=== PATIENT | female | born 1960 | race Caucasian/White ===

== ENCOUNTER 2021-10-04 08:44 | Outpatient (CLI) | payer OTHER | END 2021-10-04 08:45 | disposition home or self-care (01) | LOC: ULT 08:44 | PROVIDERS: ATTEND Physician Assistant Medical | DX: Z12.11 Encounter for screening for malignant neoplasm of colon (principal); K74.60 Unspecified cirrhosis of liver; B19.20 Unspecified viral hepatitis C without hepatic coma; I85.00 Esophageal varices without bleeding; K76.89 Other specified diseases of liver; R18.8 Other ascites; Z87.19 Personal history of other diseases of the digestive system; Z90.49 Acquired absence of other specified parts of digestive tract | CPT/HCPCS: 76705 ==

== ENCOUNTER 2022-01-07 15:27 | Inpatient (IN) | payer OTHER, MEDICAID ==
[2022-01-07 16:20] LABS: Hemoglobin 12.3 g/dL (12.0-16.0); Mean Corpuscular Hemoglobin 34.4 pg (27.0-31.0); Mean Platelet Volume 9.7 fL (7.4-10.4); Platelet Count 110 thou/uL (130-400); RBC Distribution Width 15.6 % (11.5-14.5); Red Blood Cell (RBC) Count 3.56 mill/uL (4.20-5.40); White Blood Cell (WBC) Count 7.7 thou/uL (4.8-10.8)
[2022-01-07 16:30] LABS: INR-International Normal Ratio 1.5; Prothrombin Time 18.3 sec (12.0-14.7)
[2022-01-07] MEDS ORDERED: Lidocaine 2% PF 5 ML VIAL ONE ×2 (16:30→16:50)
[2022-01-07 16:31] LABS: PTT 34.8 sec (22.9-36.1)
[2022-01-07 16:34] LABS: Band 2 % (5-11); Hypochromia SLIGHT = 6-15 cells (100X) (0-5/hpf); Lymphocytes 6 % (21-51); MDiff Complete? YES; Macrocytosis MODERATE=16-30 cells (100X) (0-5/hpf); Monocytes 19 % (0-10); Neutrophil 64 % (42-75); Nucleated RBC 1 % (0); Platelet Morphology Comment Appears Decreased; Polychromasia SLIGHT = 2-3 cells (100X) (0-2/hpf); Reactive Lymphocytes 8 % (0-10)
[2022-01-07 16:34] LABS: ALT (SGPT) 39 U/L (8-55); AST (SGOT) 63 U/L (5-34); Albumin 2.4 g/dL (3.5-5.0); Alkaline Phosphatase 121 U/L (40-110); Anion Gap 13 mmol/L (10-20); BUN (Urea Nitrogen) 9 mg/dL (9.8-20.1); Bilirubin, Total 4.4 mg/dL (0.2-1.2); Calc. Creatinine Clearance 0 mL/min (70-130); Carbon Dioxide 17 mmol/L (22-29); Chloride 107 mmol/L (98-107); Estimated GFR 96; Globulin 3.1 g/dL (2.4-3.5); Glucose 116 mg/dL (70-105); Potassium 3.2 mmol/L (3.5-5.1); Protein, Total 5.5 g/dL (6.0-8.3); Sodium 134 mmol/L (136-145)
[2022-01-07] MEDS ORDERED: Ondansetron ODT 4 MG TAB PO PRN (18:39)
[2022-01-07] MEDS ORDERED: Famotidine 20 MG TAB PO PRN (18:39)
[2022-01-07] MEDS ORDERED: Electrolyte Replacement Protocol 1 EACH FS SCH (18:45)
[2022-01-07 19:16] LABS: Lactic Acid 2.2 mmol/L (0.5-2.2)
[2022-01-07] MEDS ORDERED: Mometasone 200 MCG/Formoterol 5 MCG 120 PUFF INHALER INH SCH (19:30)
[2022-01-07] MEDS ORDERED: Potassium Chloride 20 MEQ TAB PO SCH (20:15)
[2022-01-07] MEDS: Ribavirin 200 MG CAP PO SCH (21:12)
[2022-01-07] MEDS: Rosuvastatin 20 MG TAB PO SCH (21:13)
[2022-01-07] MEDS: Metoprolol Tartrate 25 MG TAB PO SCH (21:13)
[2022-01-07] MEDS: Rifaximin 550 MG TAB PO SCH (21:13)
[2022-01-07] MEDS: Acetaminophen 325 MG TAB PO PRN (21:20)
[2022-01-07] MEDS: Nicotine 7 MG PATCH TD SCH (21:25)
[2022-01-07] MEDS: Ondansetron PF 4 MG/2 ML Vial IVP PRN (22:36)
[2022-01-08 02:34] LABS: SARS-CoV-2 NAA Rapid Test Not Detected (NotDetected)
[2022-01-08] MEDS: Mometasone 200 MCG/Formoterol 5 MCG 120 PUFF INHALER INH SCH ×2 (06:50→19:13)
[2022-01-08 08:08] LABS: #Basophils 0.1 thou/uL (0.0-0.2); #Neutrophils 4.8 thou/uL (1.40-6.50); %Basophils 0.9 % (0.0-1.0); %Eosinophils 0.1 % (0.0-10.0); %Lymphocytes 14.8 % (21.0-51.0); %Monocytes 14.7 % (0.0-10.0); %Neutrophils 69.6 % (42.0-75.0); Hemoglobin 10.9 g/dL (12.0-16.0); Mean Corpuscular HGB CONC 30.4 g/dL (32.0-36.0); Mean Corpuscular Hemoglobin 34.3 pg (27.0-31.0); Mean Platelet Volume 9.6 fL (7.4-10.4); Platelet Count 96 thou/uL (130-400); RBC Distribution Width 15.3 % (11.5-14.5); Red Blood Cell (RBC) Count 3.19 mill/uL (4.20-5.40); White Blood Cell (WBC) Count 6.9 thou/uL (4.8-10.8)
[2022-01-08 08:09] LABS: MDiff Complete? YES; Macrocytosis MODERATE=16-30 cells (100X) (0-5/hpf); Platelet Morphology Comment Appears Decreased; Polychromasia SLIGHT = 2-3 cells (100X) (0-2/hpf)
[2022-01-08] MEDS: Ribavirin 200 MG CAP PO SCH ×2 (08:44→15:15)
[2022-01-08] MEDS: Bupropion 100 MG SR TAB PO SCH (08:44)
[2022-01-08] MEDS: Rifaximin 550 MG TAB PO SCH (08:45)
[2022-01-08] MEDS: Metoprolol Tartrate 25 MG TAB PO SCH ×2 (08:46→21:00)
[2022-01-08] MEDS: Furosemide 40 MG TAB PO SCH (08:46)
[2022-01-08] MEDS: Thiamine 100 MG TAB PO SCH (08:46)
[2022-01-08] MEDS: Acetaminophen 325 MG TAB PO PRN ×2 (08:46→23:58)
[2022-01-08] MEDS: Spironolactone 25 MG TAB PO SCH (08:46)
[2022-01-08] MEDS: Potassium Chloride 20 MEQ TAB PO SCH ×2 (08:46→17:59)
[2022-01-08] MEDS: Folic Acid 1 MG TAB PO SCH (08:47)
[2022-01-08] MEDS: Ondansetron PF 4 MG/2 ML Vial IVP PRN ×2 (08:55→19:17)
[2022-01-08] MEDS ORDERED: FLU VACC QS2022-23(6MOS UP)/PF 60 MCG/0.5 ML SYRINGE IM ONE (09:00)
[2022-01-08 09:34] LABS: Chloride 110 mmol/L (98-107); Sodium 134 mmol/L (136-145)
[2022-01-08 09:35] LABS: Calcium 7.7 mg/dL (7.8-10.44); Glucose 86 mg/dL (70-105)
[2022-01-08 09:37] LABS: Anion Gap 10 mmol/L (10-20); Carbon Dioxide 18 mmol/L (22-29)
[2022-01-08 09:39] LABS: Calc. Creatinine Clearance 71 mL/min (70-130); Estimated GFR 91
[2022-01-08 09:40] LABS: BUN (Urea Nitrogen) 15 mg/dL (9.8-20.1)
[2022-01-08] MEDS ORDERED: Sodium Bicarbonate 2.5 MEQ/5 ML VIAL ONE (14:17)
[2022-01-08] MEDS ORDERED: Lidocaine 2% PF 5 ML VIAL ONE (14:17)
[2022-01-08 16:20] LABS: RBC Count-Automated (BF) 100 /cu.mm; WBC/Nucleated-Auto (BF) 367 /cu.mm
[2022-01-08] MEDS: Nicotine 7 MG PATCH TD SCH (17:59)
[2022-01-08 18:13] LABS: BF Color Yellow; Body Fluid Source Ascites Body Fluid; Clarity Clear (Clear); Tube # EDTA
[2022-01-08 18:14] LABS: BF Segmented Neutrophils 39 %; Cell Count Non Hematic 57 %; Lymphocytes 4 %
[2022-01-08] MEDS: Pantoprazole 40 MG VIAL IVP SCH (21:00)
[2022-01-08] MEDS: Rosuvastatin 20 MG TAB PO SCH (21:00)
[2022-01-09 05:28] LABS: Anion Gap 12 mmol/L (10-20); BUN (Urea Nitrogen) 22 mg/dL (9.8-20.1); Calc. Creatinine Clearance 60 mL/min (70-130); Calcium 7.9 mg/dL (7.8-10.44); Carbon Dioxide 18 mmol/L (22-29); Chloride 109 mmol/L (98-107); Estimated GFR 69; Glucose 71 mg/dL (70-105); Potassium 4.1 mmol/L (3.5-5.1); Sodium 135 mmol/L (136-145)
[2022-01-09 05:46] LABS: #Basophils 0.1 thou/uL (0.0-0.2); #Lymphocytes 1.5 thou/uL (1.20-3.40); #Monocytes 0.9 thou/uL (0.11-0.59); #Neutrophils 5.8 thou/uL (1.40-6.50); %Basophils 0.9 % (0.0-1.0); %Lymphocytes 18.4 % (21.0-51.0); %Monocytes 11.2 % (0.0-10.0); %Neutrophils 69.5 % (42.0-75.0); Hemoglobin 11.6 g/dL (12.0-16.0); MDiff Complete? YES; Macrocytosis MODERATE=16-30 cells (100X) (0-5/hpf); Mean Corpuscular HGB CONC 29.9 g/dL (32.0-36.0); Mean Corpuscular Hemoglobin 33.8 pg (27.0-31.0); Mean Platelet Volume 9.8 fL (7.4-10.4); Platelet Count 122 thou/uL (130-400); RBC Distribution Width 15.3 % (11.5-14.5); Red Blood Cell (RBC) Count 3.45 mill/uL (4.20-5.40); White Blood Cell (WBC) Count 8.3 thou/uL (4.8-10.8)
[2022-01-09] MEDS: Mometasone 200 MCG/Formoterol 5 MCG 120 PUFF INHALER INH SCH ×2 (07:01→18:11)
[2022-01-09] MEDS: Thiamine 100 MG TAB PO SCH (10:05)
[2022-01-09] MEDS: Spironolactone 25 MG TAB PO SCH (10:05)
[2022-01-09] MEDS: Ribavirin 200 MG CAP PO SCH ×2 (10:06→19:58)
[2022-01-09] MEDS: Bupropion 100 MG SR TAB PO SCH (10:06)
[2022-01-09] MEDS: Potassium Chloride 20 MEQ TAB PO SCH ×2 (10:06→16:52)
[2022-01-09] MEDS: Folic Acid 1 MG TAB PO SCH (10:06)
[2022-01-09] MEDS: Metoprolol Tartrate 25 MG TAB PO SCH ×2 (10:06→19:58)
[2022-01-09] MEDS: Furosemide 40 MG TAB PO SCH (10:07)
[2022-01-09] MEDS: Pantoprazole 40 MG VIAL IVP SCH ×2 (10:07→19:57)
[2022-01-09] MEDS: EPCLUSA PO SCH (11:01)
[2022-01-09 14:48] VITALS: BMI 18.9
[2022-01-09] MEDS: Nicotine 7 MG PATCH TD SCH (15:39)
[2022-01-09] MEDS: Rosuvastatin 20 MG TAB PO SCH (19:58)
[2022-01-09] MEDS: Rifaximin 550 MG TAB PO SCH (19:58)
[2022-01-10 05:11] LABS: Anion Gap 11 mmol/L (10-20); BUN (Urea Nitrogen) 23 mg/dL (9.8-20.1); Calc. Creatinine Clearance 54 mL/min (70-130); Calcium 7.8 mg/dL (7.8-10.44); Carbon Dioxide 15 mmol/L (22-29); Chloride 111 mmol/L (98-107); Estimated GFR 62; Glucose 105 mg/dL (70-105); Potassium 3.9 mmol/L (3.5-5.1); Sodium 133 mmol/L (136-145)
[2022-01-10 05:46] LABS: #Basophils 0.1 thou/uL (0.0-0.2); #Lymphocytes 1.4 thou/uL (1.20-3.40); #Neutrophils 4.8 thou/uL (1.40-6.50); %Basophils 1.4 % (0.0-1.0); %Eosinophils 0.2 % (0.0-10.0); %Lymphocytes 18.7 % (21.0-51.0); %Monocytes 13.5 % (0.0-10.0); %Neutrophils 66.2 % (42.0-75.0); Hemoglobin 10.3 g/dL (12.0-16.0); Mean Corpuscular HGB CONC 31.3 g/dL (32.0-36.0); Mean Corpuscular Hemoglobin 35.2 pg (27.0-31.0); Mean Platelet Volume 9.8 fL (7.4-10.4); Platelet Count 109 thou/uL (130-400); RBC Distribution Width 15.2 % (11.5-14.5); Red Blood Cell (RBC) Count 2.92 mill/uL (4.20-5.40); White Blood Cell (WBC) Count 7.3 thou/uL (4.8-10.8)
[2022-01-10] MEDS: EPCLUSA PO SCH (09:17)
[2022-01-10] MEDS: Bupropion 100 MG SR TAB PO SCH (09:18)
[2022-01-10] MEDS: Pantoprazole 40 MG VIAL IVP SCH (09:18)
[2022-01-10] MEDS: Potassium Chloride 20 MEQ TAB PO SCH ×2 (09:18→16:38)
[2022-01-10] MEDS: Thiamine 100 MG TAB PO SCH (09:19)
[2022-01-10] MEDS: Rifaximin 550 MG TAB PO SCH ×2 (09:19→19:44)
[2022-01-10] MEDS: Furosemide 40 MG TAB PO SCH (09:19)
[2022-01-10] MEDS: Ribavirin 200 MG CAP PO SCH ×2 (09:19→19:45)
[2022-01-10] MEDS: Spironolactone 25 MG TAB PO SCH (09:19)
[2022-01-10] MEDS: Folic Acid 1 MG TAB PO SCH (09:19)
[2022-01-10] MEDS: Metoprolol Tartrate 25 MG TAB PO SCH ×2 (09:19→19:46)
[2022-01-10] MEDS: Mometasone 200 MCG/Formoterol 5 MCG 120 PUFF INHALER INH SCH ×2 (10:58→18:10)
[2022-01-10] MEDS: Nicotine 7 MG PATCH TD SCH (16:42)
[2022-01-10] MEDS: Ondansetron PF 4 MG/2 ML Vial IVP PRN (16:56)
[2022-01-10] MEDS: Famotidine 20 MG TAB PO SCH (19:44)
[2022-01-10] MEDS: Rosuvastatin 20 MG TAB PO SCH (19:45)
[2022-01-11 05:02] LABS: Anion Gap 10 mmol/L (10-20); BUN (Urea Nitrogen) 20 mg/dL (9.8-20.1); Calc. Creatinine Clearance 66 mL/min (70-130); Calcium 7.9 mg/dL (7.8-10.44); Carbon Dioxide 17 mmol/L (22-29); Chloride 112 mmol/L (98-107); Estimated GFR 76; Glucose 86 mg/dL (70-105); Potassium 3.8 mmol/L (3.5-5.1); Sodium 135 mmol/L (136-145)
[2022-01-11] MEDS: Ondansetron PF 4 MG/2 ML Vial IVP PRN (05:13)
[2022-01-11 05:23] LABS: Band 9 % (5-11); Hemoglobin 9.7 g/dL (12.0-16.0); Lymphocytes 11 % (21-51); MDiff Complete? YES; Macrocytosis SLIGHT = 6-15 cells (100X) (0-5/hpf); Mean Corpuscular HGB CONC 30.5 g/dL (32.0-36.0); Mean Platelet Volume 9.5 fL (7.4-10.4); Monocytes 12 % (0-10); Neutrophil 68 % (42-75); Platelet Count 92 thou/uL (130-400); Platelet Morphology Comment Appears Decreased; RBC Distribution Width 15.2 % (11.5-14.5); Red Blood Cell (RBC) Count 2.85 mill/uL (4.20-5.40); White Blood Cell (WBC) Count 6.7 thou/uL (4.8-10.8)
[2022-01-11] MEDS: Mometasone 200 MCG/Formoterol 5 MCG 120 PUFF INHALER INH SCH (08:23)
[2022-01-11] MEDS: Rifaximin 550 MG TAB PO SCH (09:23)
[2022-01-11] MEDS: Potassium Chloride 20 MEQ TAB PO SCH (09:23)
[2022-01-11] MEDS: Folic Acid 1 MG TAB PO SCH ×2 (09:23→09:24)
[2022-01-11] MEDS: Metoprolol Tartrate 25 MG TAB PO SCH (09:24)
[2022-01-11] MEDS: Spironolactone 25 MG TAB PO SCH (09:24)
[2022-01-11] MEDS: Thiamine 100 MG TAB PO SCH (09:24)
[2022-01-11] MEDS: Furosemide 40 MG TAB PO SCH (09:24)
[2022-01-11] MEDS: Famotidine 20 MG TAB PO SCH (09:24)
[2022-01-11] MEDS: Bupropion 100 MG SR TAB PO SCH (09:25)
[2022-01-11] MEDS: Ribavirin 200 MG CAP PO SCH (09:27)
[2022-01-11] MEDS: EPCLUSA PO SCH (09:27)
[2022-01-11 12:28] VITALS: BP 104/58; TEMP 97.9
== END 2022-01-11 15:35 | disposition home or self-care (01) | DRG 432 ==
LOC: ERS 15:27 → 2NO 17:21 → OBSVTOIN 01-09 08:37
PROVIDERS: ADMIT Internal Medicine; ATTEND Internal Medicine
PROC: 0W9G3ZZ Drainage of Peritoneal Cavity, Percutaneous Approach (ICD-10-PCS; principal; 2022-01-08)
DX: K70.31 Alcoholic cirrhosis of liver with ascites (principal); G93.41 Metabolic encephalopathy; E87.1 Hypo-osmolality and hyponatremia; E87.70 Fluid overload, unspecified; Z20.822 Contact with and (suspected) exposure to COVID-19; Z91.14 Patient's other noncompliance with medication regimen; E87.6 Hypokalemia; I10 Essential (primary) hypertension; J44.9 Chronic obstructive pulmonary disease, unspecified; F17.210 Nicotine dependence, cigarettes, uncomplicated; K72.90 Hepatic failure, unspecified without coma; F41.9 Anxiety disorder, unspecified; B19.20 Unspecified viral hepatitis C without hepatic coma; Z79.899 Other long term (current) drug therapy; Z79.82 Long term (current) use of aspirin; Z90.49 Acquired absence of other specified parts of digestive tract; Z98.51 Tubal ligation status
CPT/HCPCS: 36415; 49083; 76705; 80048; 80053; 82140; 83605; 83880; 84484; 85025; 85060; 85610; 85730; 87070; 87205; 89051; 93005; 94640; 96374; C9113; G0378; J2001; J2405; J7620; Q0162; U0002